=== PATIENT | female | born 1995 | race Native Hawaiian/Other Pacific Islander ===

== ENCOUNTER 2020-06-08 08:53 | Emergency (ER) | payer BC, OTHER ==
[~2020-06-08] VITALS: Ht 160 cm; Wt 99.8 kg
[2020-06-08 09:50] LABS: PLATELET COUNT 219 K/uL (152-353)
[2020-06-08 09:53] LABS: POTASSIUM 3.9 mmol/L (3.6-5.2)
[2020-06-08 10:15] VITALS: BP 126/84; TEMP 98
== END 2020-06-08 10:15 | disposition home or self-care (01) ==
LOC: ED 08:53
PROVIDERS: Hospitalist
DX: J06.9 Acute upper respiratory infection, unspecified (principal); U07.1 COVID-19; F17.210 Nicotine dependence, cigarettes, uncomplicated
CPT/HCPCS: 36415; 80048; 85027; 87502; 87635; 87651; 96360; 99284; U0003

== ENCOUNTER 2023-01-28 08:12 | Outpatient (CLI) | payer OTHER | END 2023-01-28 22:12 | disposition home or self-care (01) | LOC: MRI 08:12 | PROVIDERS: ATTEND Orthopaedic Surgery | DX: M54.12 Radiculopathy, cervical region (principal); M54.16 Radiculopathy, lumbar region ==